=== PATIENT | female | born 1960 | race Caucasian/White ===

== ENCOUNTER 2019-06-18 14:03 | Emergency (ER) | payer MEDICAID ==
[~2019-06-18] VITALS: Ht 165.1 cm; Wt 62.6 kg
[2019-06-18 14:44] VITALS: Ht 165.1 cm; Wt 62.6 kg
[2019-06-18 17:21] VITALS: BP 129/75
== END 2019-06-18 17:21 | disposition home or self-care (01) ==
LOC: ED 14:03
DX: S05.01XA Injury of conjunctiva and corneal abrasion without foreign body, right eye, initial encounter (principal); L29.9 Pruritus, unspecified; X58.XXXA Exposure to other specified factors, initial encounter; Y93.89 Activity, other specified; Y92.89 Other specified places as the place of occurrence of the external cause; Y99.8 Other external cause status